=== PATIENT | female | born 1985 | race Caucasian/White ===

== ENCOUNTER 2021-04-17 08:55 | Outpatient (CLI) | payer BC, SELFPAY ==
--- NOTE | 2021-05-02 09:13 | WPDHOMESLEEP ---
Sleep Study - Home Unattended Date of Study: 04/17/21 Ordering Provider: Jacob Yarbrough, SOO Interpreting Provider: Maribeth Stephens MD Home Sleep Study Type: Apnea Link Air Height: 1.6 m Weight: 112.037 kg Body Mass Index: 43.7 Neck Circumference (inches): 14.75 [place]: 4 Reason for Sleep Study Non restorative sleep Sleep History Dali Valdes is a 36-year-old female who has had 10 years of poor quality sleep. No matter how much she sleeps, she still feels tired in the morning. Vitamin-D levels were normal. There is a family history with father having loud snoring. The patient has seen an medical data analyst. She does not awaken from sleep feeling short of breath. She occasionally awakens at night with heartburn, belching or coughing. She occasionally snores. She never snores loudly enough that others complain about it. She frequently has trouble sleeping with a cold. She does not wake up gasping for breath at night. She does not have breathing problems at night observed by others. She rarely sweats excessively at night. She does not notice her heart pounding or beating irregularly at night. She occasionally falls asleep during the day. She never falls asleep involuntarily or while driving. She does not have loss of muscle tone with strong emotion. She constantly has daytime difficulties due to excessive sleepiness. She is a [id number] mom. She does not feel paralyzed on waking or falling asleep. She does not have vivid dreamlike scenes upon awakening or falling asleep. She does not feel afraid to go to sleep. She occasionally has nightmares. She frequently remembers her dreams. She occasionally has racing thoughts, feelings of sadness depression and anxiety. She occasionally has muscular tension. She rarely notices parts of her body jerking. She occasionally kicks at night. She rarely has crawling and aching feelings in her legs. She occasionally has leg pain at night. She does not have morning jaw pain, does not grind her teeth during sleep and is not bothered by pain during the day. She rarely is awakened by pain at night. she constantly wakes up feeling stiff in the morning frequently with sore muscles and frequently with pain in the spine. She has fatigue, headaches, and depression. Normal bedtime 10:30 p.m. falling asleep within 10-20 minutes typically waking twice at night. She will look at the clock, help her toddler go back to sleep and then return to sleep within 5-10 minutes. She wakes the morning between 7 and 8:00 a.m.. She estimates getting 6-8 hours of sleep at night on weekends, she may stay awake until midnight. Wake-up time is the same. She takes naps in the afternoon or evening. A short nap is not refreshing. She is drowsy in the morning for 3 hours or longer. She feels better in the evening compared to the morning. Habits: Former tobacco smoker. Caffeine 2 servings a day. Alcohol 1 on occasion. No recreational drugs. [facility] Past Medical History Medical History (Updated 05/02/21 @ 09:26 by Maribeth Stephens MD) Asthma Depression with anxiety Heartburn Seasonal allergies Surgical History Surgical History (Updated 05/02/21 @ 09:21 by Maribeth Stephens MD) S/P 2018, twins S/P sinus surgery 2007, 2008 S/P spinal fusion 2002 Family History Family History (Updated 05/02/21 @ 09:24 by Maribeth Stephens MD) Father Snoring Mother Mixed anxiety and depressive disorder Other COPD (chronic obstructive pulmonary disease) Diabetes mellitus Heart disease Skin cancer Social History Social History (Updated 05/02/21 @ 09:23 by Maribeth Stephens MD) Smoking status: Former smoker Additional smoking assessment comments: smoked 2 pack/week, started age 16 Substance use: never Living arrangements: with family Medications Medications: montelukast 10 mg a day cetirizine 5 mg in the evening escitalopram 10 mg daily levels oral contraceptive Jessica 0.25m
[2021-05-02 09:29] VITALS: BMI 43.7
== END 2021-04-18 10:15 | disposition home or self-care (01) ==
LOC: ANHCSM 08:57
PROVIDERS: PCP Physician Assistant; Visit Provider Physician Assistant
DX: G47.33 Obstructive sleep apnea (adult) (pediatric) (principal)
CPT/HCPCS: 95806

== ENCOUNTER 2022-06-24 09:04 | Outpatient (CLI) | payer BC, SELFPAY ==
--- NOTE | ~2022-06-24 | CT_ITS ---
EXAMINATION: CT sinus wo con DATE: 06/24/2022 09:26 INDICATION: Chronic pansinusitis TECHNIQUE: Computed tomography (CT) of the paranasal sinuses was performed without contrast. Iterativ e reconstruction technique was employed. Exam dose: 315.62 mGy-cm total exam DLP. COMPARISON: None FINDINGS: There is rightward bowing of the upper portion of the nasal septum and leftward bowing of t he lower portion of the nasal septum, with a prominent leftward bony spur of the lower nasal septum. There is asymmetric prominent soft tissue swelling of the right middle and inferior nasal turbinates. There is opacification of the middle meatus on the right. There is almost complete opacification of the right maxillary sinus. The right nasal antral window is virtually occluded. There is severe mucoperiosteal thickening of the left maxillary sinus with minimal residual aeration of this structure. The nasal antral window is open. There are bilateral nasal antral windows with resection of the uncinate processes bilaterally. There is moderately severe mucoperiosteal thickening of the frontal sinuses and prominent patchy opac ification of ethmoid air cells bilaterally. Mild right and minimal left sphenoid sinus mucoperiosteal thickening. The mastoid air cells are normally developed and aerated bilaterally. No bone destruction of the sinus vasquez. IMPRESSION: Nasal septum rightward bowing; lower nasal septum leftward bowing and prominent leftward bony spur Prominent asymmetric soft tissue swelling of the right middle and inferior nasal turbinates Status post bilateral nasal antral windows, virtually occluded on the right Severe bilateral maxillary sinus soft tissue thickening, right greater than left Moderately severe bilateral frontal sinus and prominent bilateral ethmoid sinus soft tissue thickenin g Minimal mucoperiosteal thickening of the sphenoid sinuses Reviewed, dictated and finalized at [facility]. Reviewed, dictated and finalized at [facility]. IMPRESSION: Nasal septum rightward bowing; lower nasal septum leftward bowing and prominent leftward bony spur Prominent asymmetric soft tissue swelling of the right middle and inferior nasa l turbinates Status post bilateral nasal antral windows, virtually occluded on the right Severe bilateral maxillary sinus soft tissue thickening, right greater than lef t Moderately severe bilateral frontal sinus and prominent bilateral ethmoid sinus soft tissue thickening Minimal mucoperiosteal thickening of the sphenoid sinuses
== END 2022-06-24 09:05 | disposition home or self-care (01) ==
PROVIDERS: PCP Physician Assistant
DX: J32.4 Chronic pansinusitis (principal); J34.2 Deviated nasal septum; M79.89 Other specified soft tissue disorders
CPT/HCPCS: 70486